=== PATIENT | female | born 1960 | race Caucasian/White ===

== ENCOUNTER 2018-07-13 01:16 | Emergency (ER) | payer OTHER ==
--- NOTE | 2018-07-13 01:35 | ED Physician Documentation ---
General Adult - HISTORIAN Historian: patient - HPI Stated Complaint: Rt facial tingling/swelling Chief Complaint: General Adult Onset: hours (12) Timing: still present Severity: moderate Further Comments: yes (she states she got off work at 2 pm and had some mild right sided facial pain and she took two ibuprofen and she went to bed waking "all the time with the same pain" and states when she woke about one hour ago she took her b/p an it was "40's and 50's so I came to the ER" (when I did ask her to clarify "40's and 50"s she states this was 140's and 150's . She reports specifically pain is from mid to right side of face down to eye lid and more painful when she tries to open her eye. shed denies any visual disturbance. She denies any recent head trauma and she denies any one sided weakness.) - ROS CONST: no problems EYES/ENT: denies: problems with vision, sore throat, nasal drainage, nasal congestion CVS/RESP: denies: chest pain GI/: none MS/SKIN/LYMPH: none NEURO/PSYCH: denies: headache, fainting, dizziness, tingling, numbness, difficulty walking, difficulty with speech - PAST HX Past History: hypertension Allergies/Adverse Reactions: Allergies Allergy/AdvReac Type Severity Reaction Status Date / Time Penicillins Allergy Verified 07/13/18 01:31 Home Medications: Ambulatory Orders Medication Instructions Recorded Citalopram Hydrobromide 40 mg PO DAILY 07/13/18 [Citalopram HBr] Meloxicam 7.5 mg PO DAILY 07/13/18 Sumatriptan Succinate 25 mg PO PRN PRN 07/13/18 - SOCIAL HX Smoking History: cigarettes Alcohol Use: none Drug Use: none - FAMILY HX Family History: No - VITAL SIGNS Vital Signs: Vital Signs Temp Pulse Resp BP Pulse Ox 98.8 F 60 14 146/79 98 07/13/18 01:20 07/13/18 01:20 07/13/18 01:20 07/13/18 01:20 07/13/18 01:20 - REVIEWED ASSESSMENTS Nursing Assessment Reviewed: Yes Vitals Reviewed: Yes Progress - Progress Progress: 0233: discussed findings - and need to follow up with eye first thing in am. She is aware this is following the pattern of shingles and we will start treatment. She is agreeable DG ED Results Lab/Radiology - Radiology Radiology Impressions: CT brain noncontrast Date of study: 07/13/2018. CLINICAL HISTORY: RT SIDED SWELLING AND PAIN OF FACE SINCE 2 PM TECHNIQUE: 5 mm contiguous axial images of the brain, noncontrast with sagittal and coronal multiplanar reconstructions. FINDINGS: There is no evidence of intracranial mass effect, hemorrhage, or acute infarct. The lateral ventricles are symmetrical and the 4th ventricle is midline without shift. No acute brain parenchymal changes or extra-axial fluid collections are identified. The posterior fossa contents are within normal limits. The calvarium is intact. The visualized sinuses and mastoid air cells are clear. IMPRESSION: No acute intracranial process. Electronically signed on July 13, 2018 2:15:58 AM CDT by: Andrew Beckwith CT of the facial bones Clinical history: Right eyelid pain and swelling. Technique: CT of the facial bones is performed in contiguous axial slices with sagittal and coronal reconstructions. Findings: Zygomatic arches are intact as are the nasal bones and the anterior maxillary spine. Bony margins of the orbits are intact. The extraocular muscles and optic nerves are symmetric. Orbital fat is preserved. Nasal septum lies in a normal midline position. Nasal airway passages are patent. Visualized paranasal sinuses and the mastoid air cells are clear. Mandibular condyle is normally seated in the temporal fossa bilaterally. There is mild right periorbital soft tissue swelling. Impression: 1. Mild right periorbital soft tissue swelling. 2. Otherwise negative study Electronically signed on July 13, 2018 2:18:23 AM CDT by: Andrew Beckwith General Adult Physical Exam - PHYSICAL EXAM GENERAL APPEARANCE: no distress EENT: pharynx normal, no signs of dehydration, other (right upper eye lid mildly swollen . She has no droop or change in visual field. She does have pain with opening the right eye in the eye lid and behind the eye per the pt ) NECK: normal inspection RESPIRATORY: no resp distress, chest non-tender, breath sounds normal CVS: reg rate & rhythm, heart sounds normal ABDOMEN: soft, no distension BACK: normal inspection, no CVA tenderness SKIN: warm/dry, normal color EXTREMITIES: non-tender, normal range of motion, no evidence of injury, no edema NEURO: oriented X3, CN's nml as tested, motor nml, sensation nml, mood/affect nml, cognition normal Discharge Clincal Impression: Shingles Qualifiers: Herpes zoster complications: without complications Qualified Code(s): B02.9 - Zoster without complications Referrals: Primary Doctor,No [REFERRING] - 2 Days Comments: 1. Call Eye Dr GONZALES in am for follow up 2. Acyclovir 800 mg take 1 by mouth five times per day x 7 days 3. Neurontin 100 mg take 1 by mouth three times per day as needed for pain x 10 days 4. Tramadol 50 mg take 1 by mouth every 8 hours as needed for pain 5. Medrol dose pack - as directed start 07.14.2018 6. See PCP tomorrow 7. Return to ER for any increasing concerns Condition: Stable Disposition: 01 HOME, SELF-CARE Decision to Admit: NO Date of Decison to Admit: 07/13/18 Decision Time: 02:35
[2018-07-13] MEDS ORDERED: ACYCLOVIR 200 MG CAPSULE PO ONE (02:27)
[2018-07-13] MEDS ORDERED: methylPREDNISolone SOD SUCC 125 MG/2 ML VIAL IVP ONE (02:28)
[2018-07-13] MEDS ORDERED: KETOROLAC TROMETHAMINE 30 MG/1ML VIAL IV ONE (02:28)
[2018-07-13 03:07] VITALS: BP 141/73
[2018-07-13 06:04] LABS: BASOPHILS % 0.2 % (0.0-1.5); MEAN CORPUSCULAR HEMOGLOBIN 30.6 pg (28.0-34.0); MONOCYTES % 8.2 % (0.0-11.0); NEUTROPHILS # 3.8 # k/uL (1.4-7.7)
[2018-07-13 06:05] LABS: eGFR (Non-African) > 60
--- NOTE | 2018-07-13 06:28 | Diagnostic Imaging Report ---
ROSANNE SNOW [facility] [id number] [facility] [address] [place], [place]. [address] Report Submission Date: July 13, 2018 2:18:23 AM CDT Patient Study Name: UTE MO Date: July 13, 2018 1:56:51 AM CDT Modality Type: CT\SR Gender: F Description: CT MAXILLOFACIAL W/O D : 64 Institution: [facility] Physician: ROSANNE SNOW CT of the facial bones Clinical history: Right eyelid pain and swelling. Technique: CT of the facial bones is performed in contiguous axial slices with sagittal and coronal reconstructions. Findings: Zygomatic arches are intact as are the nasal bones and the anterior maxillary spine. Bony margins of the orbits are intact. The extraocular muscles and optic nerves are symmetric. Orbital fat is preserved. Nasal septum lies in a normal midline position. Nasal airway passages are patent. Visualized paranasal sinuses and the mastoid air cells are clear. Mandibular condyle is normally seated in the temporal fossa bilaterally. There is mild right periorbital soft tissue swelling. Impression: 1. Mild right periorbital soft tissue swelling. 2. Otherwise negative study Electronically signed on July 13, 2018 2:18:23 AM CDT by: Andrew SHORT
--- NOTE | 2018-07-13 06:29 | Diagnostic Imaging Report ---
ROSANNE SNOW [facility] [address] [facility] [address] [place], [place]. [address] Report Submission Date: July 13, 2018 2:15:58 AM CDT Patient Study Name: UTE MO Date: July 13, 2018 1:53:56 AM CDT Modality Type: CT\SR Gender: F Description: CT BRAIN W/O CONTRAST : 64 Institution: [facility] Physician: ROSANNE SNOW CT brain noncontrast Date of study: 07/13/2018. CLINICAL HISTORY: RT SIDED SWELLING AND PAIN OF FACE SINCE 2 PM TECHNIQUE: 5 mm contiguous axial images of the brain, noncontrast with sagittal and coronal multiplanar reconstructions. FINDINGS: There is no evidence of intracranial mass effect, hemorrhage, or acute infarct. The lateral ventricles are symmetrical and the 4th ventricle is midline without shift. No acute brain parenchymal changes or extra-axial fluid collections are identified. The posterior fossa contents are within normal limits. The calvarium is intact. The visualized sinuses and mastoid air cells are clear. IMPRESSION: No acute intracranial process. Electronically signed on July 13, 2018 2:15:58 AM CDT by: Andrew SHORT
== END 2018-07-13 02:50 | disposition home or self-care (01) ==
LOC: ED 01:16
DX: B02.9 Zoster without complications (principal)
CPT/HCPCS: 36415; 70450; 70486; 80053; 85025; 85610; 96374; 96375; 99283; 99285; J1885; J2930; S1016